=== PATIENT | female | born 1945 | race Caucasian/White ===

== ENCOUNTER 2020-01-15 17:05 | Outpatient (CLI) | payer MEDICARE, OTHER, SELFPAY ==
[2020-01-15 18:11] LABS: Anion Gap 4 mmol/L (8-16); Blood Urea Nitrogen 19 mg/dL (7-17); Calcium 9.3 mg/dL (8.4-10.2); Carbon Dioxide 35 mmol/L (22-30); Chloride 102 mmol/L (98-107); Estimated Glomerular Filt Rate > 60; Glucose 100 mg/dL (65-105); Potassium 4.3 mmol/L (3.4-5.0); Sodium 141 mmol/L (137-145)
[2020-01-15 18:19] LABS: NT Pro B Type Natriuretic Pept 89 PG/ML (5-100)
[2020-01-15 19:02] LABS: Basophils Percent Auto 0.5 % (0.2-1.2); Eosinophils Absolute Auto 0.1 K/mm3 (0-0.3); Eosinophils Percent Auto 1.8 % (0-4.4); Hemoglobin 11.9 g/dL (12.0-15.0); Immature Granulocyte Absolute 0.09 K/mm3 (0.00-0.031); Immature Granulocyte Percent A 1.1 % (0-0.5); Lymphocytes Absolute Auto 2.06 K/mm3 (0.9-3.2); Lymphocytes Percent Auto 25.8 % (18.3-44.2); Mean Corpuscular HGB Conc 31.3 g/dl (32-36); Mean Platelet Volume 10.2 fl (7.4-10.4); Monocytes Absolute Auto 0.7 K/mm3 (0.1-0.6); Monocytes Percent Auto 8.6 % (2.6-8.5); Neutrophils Percent Auto 62.2 % (45.5-73.1); Platelet Count Result 247 k/mm3 (150-375); Red Blood Count 4.58 M/mm3 (4.2-5.4); Red Cell Distribution Width 14.7 % (11.5-14.5)
== END 2020-01-15 17:06 | disposition home or self-care (01) ==
LOC: ANHLAB 17:14
PROVIDERS: PCP Family Medicine; Visit Provider Internal Medicine Cardiovascular Disease
DX: R22.43 Localized swelling, mass and lump, lower limb, bilateral (principal); I48.0 Paroxysmal atrial fibrillation; Z79.01 Long term (current) use of anticoagulants; Z95.0 Presence of cardiac pacemaker
CPT/HCPCS: 36415; 80048; 83880; 85025

== ENCOUNTER 2020-02-13 15:50 | Outpatient (CLI) | payer MEDICARE, OTHER, SELFPAY ==
[2020-02-13 16:41] LABS: Anion Gap 6 mmol/L (8-16); Blood Urea Nitrogen 16 mg/dL (7-17); Carbon Dioxide 32 mmol/L (22-30); Chloride 101 mmol/L (98-107); Estimated Glomerular Filt Rate > 60; Glucose 175 mg/dL (65-105); Potassium 4.6 mmol/L (3.4-5.0); Sodium 139 mmol/L (137-145)
== END 2020-02-13 15:51 | disposition home or self-care (01) ==
LOC: ANHLAB 15:56
PROVIDERS: PCP Family Medicine; Visit Provider Nurse Practitioner Adult Health
DX: R60.0 Localized edema (principal); Z79.899 Other long term (current) drug therapy
CPT/HCPCS: 36415; 80048

== ENCOUNTER 2022-01-26 01:20 | Day surgery (SDC) | payer MEDICARE, OTHER, SELFPAY ==
[2022-01-25 13:04] VITALS: BMI 32.3
[2022-01-26 08:47] VITALS: BP 124/50; PULSE 55; RESP 21; TEMP 37; O2SAT 93
[2022-01-26 08:56] VITALS: BMI 32.2
[2022-01-26 08:57] LABS: Basophils Percent Auto 0.5 % (0.2-1.2); Eosinophils Absolute Auto 0.2 K/mm3 (0-0.3); Eosinophils Percent Auto 2.1 % (0-4.4); Hemoglobin 11.8 g/dL (12.0-15.0); Immature Granulocyte Absolute 0.15 K/mm3 (0.00-0.031); Immature Granulocyte Percent A 1.9 % (0-0.5); Lymphocytes Absolute Auto 1.57 K/mm3 (0.9-3.2); Lymphocytes Percent Auto 20.3 % (18.3-44.2); Mean Corpuscular HGB Conc 31.9 g/dl (32-36); Mean Corpuscular Hemoglobin 25.8 pg (26-34); Mean Corpuscular Volume 80.8 fl (80-100); Mean Platelet Volume 9.5 fl (7.4-10.4); Monocytes Absolute Auto 0.5 K/mm3 (0.1-0.6); Monocytes Percent Auto 6.6 % (2.6-8.5); Neutrophils Absolute Auto 5.3 K/mm3 (1.3-6.7); Neutrophils Percent Auto 68.6 % (45.5-73.1); Platelet Count Result 303 k/mm3 (150-375); Red Blood Count 4.58 M/mm3 (4.2-5.4); Red Cell Distribution Width 14.3 % (11.5-14.5); White Blood Count 7.7 K/mm3 (4.5-10.0)
[2022-01-26 09:13] LABS: Anion Gap 6 mmol/L (8-16); Blood Urea Nitrogen 20 mg/dL (7-17); Calcium 9.3 mg/dL (8.4-10.2); Carbon Dioxide 29 mmol/L (22-30); Chloride 102 mmol/L (98-107); Estimated CRCL calculation 51 ml/min; Estimated Glomerular Filt Rate 54; Glucose 249 mg/dL (65-110); Potassium 4.1 mmol/L (3.4-5.0); Sodium 137 mmol/L (137-145)
[2022-01-26 09:18] LABS: INR 0.9; Prothrombin Time 11.9 Seconds (11.1-14.7)
--- NOTE | 2022-01-26 10:06 | PM.IMHP ---
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 History of paroxysmal AFib on Eliquis which has been held for 2 days. TIA in 2018, diabetes, tobacco use, COPD, hypertension, hyperlipidemia and diabetes. Patient's pacemaker reached elective replacement interval recently and she is here for generator change. She is feeling well although little more wheezy than usual and has used for proper this morning. Review of Systems Constitutional: Constitutional: Denies fever(s) Cardiovascular: Cardiovascular: Denies chest pain, Denies pedal edema, Denies lightheadedness and Denies dyspnea Respiratory: Respiratory: Denies chest congestion, Denies dyspnea and Reports wheezing Gastrointestinal: Gastrointestinal: Denies abdominal pain and Denies hematochezia Musculoskeletal: Musculoskeletal: Reports no additional musculoskeletal complaints Integumentary/Breasts: Skin/Breast: Reports system reviewed and no additional complaints, except as docu Neurologic: Reports system reviewed and no additional complaints, except as documented, Denies behavioral changes and Denies confusion Psychiatric: Psychiatric: Denies behavioral changes and Denies confusion PMFSH Family History Family History Mother Family history of premature coronary heart disease Cerebrovascular accident Family history of pancreatic cancer Father Hypertension Family history of elevated blood lipids Cerebrovascular accident Carcinoma of colon Malignant neoplasm of prostate Sibling Family history of malignant neoplasm of breast Other Diabetes mellitus Family history of hypercholesterolemia Family history of malignant neoplasm Social History Social History Years smoked: 50 Smoking status: Current every day smoker Tobacco type: cigarettes Alcohol intake: never Substance use type: does not use Living arrangements: with family Spiritual care concerns: No Meds Home Medications and Allergies Home Medications Medication Instructions Recorded Confirmed Type apixaban 5 mg tablet (Eliquis) 5 mg PO BID 02/08/19 01/25/22 History fenofibrate 160 mg tablet 160 mg PO DAILY #90 tabs 04/29/19 01/25/22 Rx rosuvastatin 20 mg tablet 20 mg PO DAILY #90 tabs 07/03/19 01/25/22 Rx aspirin 81 mg tablet,delayed 81 mg PO DAILY 11/01/19 01/25/22 History release calcium carbonate 500 mg-vitamin 1 tablet PO DAILY 11/01/19 01/25/22 History D3 5 mcg (200 unit) tablet (Os-Tato 500 + D3) cholecalciferol (vitamin D3) 125 125 mcg PO DAILY 11/01/19 01/25/22 History mcg (5,000 unit) capsule insulin aspart U-100 100 unit/mL 1 sliding scale dose subcut 11/01/19 01/25/22 History subcutaneous solution (Novolog USEASDIRECTD U-100 Insulin aspart) omega-3 fatty acids 1,000 mg 2,000 mg PO BID #180 caps 12/25/19 01/25/22 Rx capsule alendronate 70 mg tablet 70 mg PO WEEKLY #13 tabs 03/09/20 01/25/22 Rx albuterol sulfate 1.25 mg/3 mL 1.25 mg (3 mL) inhalation Q4-6H 05/06/20 01/25/22 Rx solution for nebulization PRN shortness of breath or wheezing #180 mL fluoxetine 20 mg capsule (Prozac) 20 mg PO BID #180 caps 05/25/20 01/25/22 Rx olmesartan 40 mg tablet 40 mg PO DAILY #90 tabs 05/25/20 01/25/22 Rx trazodone 100 mg tablet 100 mg PO .qhs #90 tabs 05/25/20 01/25/22 Rx famotidine 20 mg tablet 20 mg PO DAILY 01/25/22 01/25/22 History fluticasone fur. 100 mcg-umeclid 1 inh inhalation DAILY 01/25/22 01/26/22 History 62.5 mcg-vilant 25 mcg inhalat.powder (Trelegy Ellipta) fluticasone propionate 50 2 spray intranasal DAILY PRN 01/25/22 01/25/22 History mcg/actuation nasal Allergy Symptoms spray,suspension furosemide
--- NOTE | 2022-01-26 10:10 | WPDMODSED ---
Moderate Sedation Note-Pt Data Patient Data Diagnosis: Pacemaker at elective replacement interval. Present Complaint: Patient with a [employer] [facility] dual-chamber pacemaker placed December 2012 for symptomatic bradycardia. This has reached MICHAEL and she is here for a generator change under conscious sedation. Procedure to be performed/Plan: Conscious sedation Pulse generator change Allergies Allergy/AdvReac Type Severity Reaction Status Date / Time shellfish derived Allergy Severe HIVES, Verified 01/26/22 08:43 SWELLING Penicillins Allergy Unknown Skin Verified 01/26/22 08:43 Reaction Home Medications Medication Instructions Recorded Confirmed Type apixaban 5 mg tablet (Eliquis) 5 mg PO BID 02/08/19 01/25/22 History fenofibrate 160 mg tablet 160 mg PO DAILY #90 tabs 04/29/19 01/25/22 Rx rosuvastatin 20 mg tablet 20 mg PO DAILY #90 tabs 07/03/19 01/25/22 Rx aspirin 81 mg tablet,delayed 81 mg PO DAILY 11/01/19 01/25/22 History release calcium carbonate 500 mg-vitamin 1 tablet PO DAILY 11/01/19 01/25/22 History D3 5 mcg (200 unit) tablet (Os-Tato 500 + D3) cholecalciferol (vitamin D3) 125 125 mcg PO DAILY 11/01/19 01/25/22 History mcg (5,000 unit) capsule insulin aspart U-100 100 unit/mL 1 sliding scale dose subcut 11/01/19 01/25/22 History subcutaneous solution (Novolog USEASDIRECTD U-100 Insulin aspart) omega-3 fatty acids 1,000 mg 2,000 mg PO BID #180 caps 12/25/19 01/25/22 Rx capsule alendronate 70 mg tablet 70 mg PO WEEKLY #13 tabs 03/09/20 01/25/22 Rx albuterol sulfate 1.25 mg/3 mL 1.25 mg (3 mL) inhalation Q4-6H 05/06/20 01/25/22 Rx solution for nebulization PRN shortness of breath or wheezing #180 mL fluoxetine 20 mg capsule (Prozac) 20 mg PO BID #180 caps 05/25/20 01/25/22 Rx olmesartan 40 mg tablet 40 mg PO DAILY #90 tabs 05/25/20 01/25/22 Rx trazodone 100 mg tablet 100 mg PO .qhs #90 tabs 05/25/20 01/25/22 Rx famotidine 20 mg tablet 20 mg PO DAILY 01/25/22 01/25/22 History fluticasone fur. 100 mcg-umeclid 1 inh inhalation DAILY 01/25/22 01/26/22 History 62.5 mcg-vilant 25 mcg inhalat.powder (Trelegy Ellipta) fluticasone propionate 50 2 spray intranasal DAILY PRN 01/25/22 01/25/22 History mcg/actuation nasal Allergy Symptoms spray,suspension furosemide 20 mg tablet 40 mg PO DAILY 01/25/22 01/25/22 History gabapentin 300 mg tablet 300 mg PO BID 01/25/22 01/26/22 History insulin glargine 100 unit/mL 50 unit subcut QPM 01/25/22 01/25/22 History subcutaneous cartridge ytxuvzvepsze-ijqyhsor-emvwvn tablet 1 tablet PO DAILY 01/25/22 01/25/22 History potassium 99 mg tablet 99 mg PO DAILY 01/26/22 01/26/22 History Sedation/Anesthesia: No previous sedation/anesthesia problems (including family history). [facility] Family History Family History Mother Family history of premature coronary heart disease Cerebrovascular accident Family history of pancreatic cancer Father Hypertension Family history of elevated blood lipids Cerebrovascular accident Carcinoma of colon Malignant neoplasm of prostate Sibling Family history of malignant neoplasm of breast Other Diabetes mellitus Family history of hypercholesterolemia Family history of malignant neoplasm Social History Social History Years smoked: 50 Smoking status: Current every day smoker Tobacco type: cigarettes Alcohol intake: never Substance use type: does not use Living arrangements: with family Spiritual care concerns: No Mod Sed Physical Exam Physical Exam Pre Procedural Exam: Normal: Appearance, Eyes, Ears, Nose, Neck, Throat, Airway, Heart Size, Heart Rate, Heart Rhythm, Neuro Exam, Abdomen, Extremities and Skin (Pacemaker Incision is well healed) and Variation: Lungs (Few scattered wheezes) Hours since solid foods: 12 Hours since liquid intake: 12
--- NOTE | 2022-01-26 10:27 | SUR.PREOP ---
Dr. Rios at bedside at 0955 discussing procedure with patient and her step-daughter Nelly. Dr. Rios informed of patient's labs including elevated glucose of 249 and allergies including shellfish and penicillin. Vancomycin to be used for procedure. Patient's chest was wiped with 2% chlorhexadine prior to transporting to labor specialist. Dr. Rios aware of patient's cough and wheezing and diagnosis of COPD. No new orders for those symptoms. Plan to treat patient's glucose with insulin post procedure.
--- NOTE | 2022-01-26 11:19 | PM.OP ---
Procedure Note - Brief Procedure Note - Brief Date of procedure: 01/26/22 Pre-op diagnosis: frances Post-op diagnosis: Other ( status post generator change) Procedure performed: Conscious sedation Pulse generator change Description of procedure: uneventful generator change Surgeon: Shona Rios MD Complications: No immediate complications Disposition: Observation
--- NOTE | 2022-01-26 11:21 | P.OP_ITS ---
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 Parrish.? Atrially paces 80% and is pacemaker dependent. History of paroxysmal AFib on Eliquis which has been held for 2 days.? TIA in 2018, diab etes, tobacco use, COPD, hypertension, hyperlipidemia and diabetes.? Patient's pacemaker reached elective replacement interval recently and she is here for generator change.? She is feeling well although little more wheezy than usual and has used for proper this morning. Description of Procedure UNDERLYING RHYTHM: underline junctional rhythm CONSCIOUS SEDATION: Assessment: The patient has no history of anesthesia problems. The oropharynx is clear. The patient was deemed to be a good candidate for conscious sedation. The patient had continuous hemodynamic and oximetric monitoring during the procedure. Start time: 10:39 a.m. Completion time: 11:12 a.m. Total conscious sedation time: 33 minutes Medications: Versed 1 mg, fentanyl 50 mcg IV push Trained observer: Feliz Block RN Outcome: The patient tolerated the procedure well with no complications. PROCEDURE: After informed consent, the patient is brought to the general laborer and the left prepectoral area was prepped and draped in usual fashion. The patient was given a prophylactic antibiotic intravenously with vancomycin. After conscious sedation as described above, the area was anesthetized with 1% lidocaine. A skin incision was made with the Plasma Blade and carried down to the pacing capsule which was also incised. There was a thick calcified capsule surrounding the device which was partially excised. Hemostasis was obtained using the Plasma Blade. The lead/s was/were freed from the underlying capsule and inspected and were found to be intact. The pulse generator was delivered from the pocket. The lead/s was/were disconnected from the existing device and reconnected to the new device. A gentle tug could not remove it/them. The device and lead/s was/were interrogated and found to be functioning appropriately. The area was copiously irrigated with antibiotic-containing solution. The device was replaced in the pocket. The subcutaneous tissues were closed in a two-layer fashion with interrupted 2 0 Vicryl sutures and the skin was closed in a continuous fashion using 4 0 Vicryl. The area was cleansed, an Aquacel dressing applied. The patient tolerated the procedure well with no complications. Estimated blood loss was negligible. THRESHOLD INFORMATION: Atrial lead: P-wave sensing 2.1 mV, threshold 0.75 volts at 0.4 milliseconds, impedance 340 Ohms Ventricular lead: R-wave sensing greater than 12 mV, threshold 0.875 volts at 0.2 milliseconds, impedance 510 Ohms PROGRAMMED PARAMETERS: DDDR 60-100 Implants DEVICE INFORMATION: New pulse generator: 50 Cubes model 2272, serial [id number] Existing right atrial lead: [employer] model 1998/46 cm, serial [id number], implanted 12/14/2012 Existing ventricular lead: [employer] model 2088 TC/52 cm, serial [id number], implanted 12/14/2012 Explanted device: [employer] model 2210, serial [id number], implanted 12/14/2012
[2022-01-26 11:30] VITALS: BP 118/63; PULSE 60; RESP 20; TEMP 36.6; O2SAT 93
[2022-01-26 11:39] LABS: Glucose Point of Care 196 mg/dl (65-105)
[2022-01-26 11:45] VITALS: BP 142/66; PULSE 63; RESP 20; O2SAT 91
--- NOTE | 2022-01-26 11:54 | ECG_ITS ---
Measurements Intervals [place] Rate: 60 P: -46 FL: 277 QRS: 227 QRSD: 118 T: 48 QT: 428 QTc: 428 Interpretive Statements ELECTRONIC ATRIAL PACEMAKER RIGHT AXIS DEVIATION INTRAVENTRICULAR CONDUCTION DELAY BORDERLINE ST-T WAVE ABNORMALITY- ANTERIOR LEADS BORDERLINE ECG NO PREVIOUS ECG AVAILABLE FOR COMPARISON Electronically Signed On 01-26-2022 12:03:59 [employer]APHIC [employer] SALES REPRESENTATIVE by Praneeth Lara D.O.
[2022-01-26 12:00] VITALS: BP 131/61; PULSE 63; RESP 19; O2SAT 90
== END 2022-01-26 12:30 | disposition home or self-care (01) ==
PROVIDERS: Visit Provider Internal Medicine Cardiovascular Disease
PROC: 0JPT0PZ Removal of Cardiac Rhythm Related Device from Trunk Subcutaneous Tissue and Fascia, Open Approach (ICD-10-PCS; CPT 33228; principal; 2022-01-26 10:00)
DX: Z45.010 Encounter for checking and testing of cardiac pacemaker pulse generator [battery] (principal); R00.1 Bradycardia, unspecified; I48.0 Paroxysmal atrial fibrillation; I10 Essential (primary) hypertension; E78.5 Hyperlipidemia, unspecified; J43.9 Emphysema, unspecified; E11.65 Type 2 diabetes mellitus with hyperglycemia; F17.210 Nicotine dependence, cigarettes, uncomplicated; Z86.73 Personal history of transient ischemic attack (TIA), and cerebral infarction without residual deficits; Z79.01 Long term (current) use of anticoagulants; Z79.82 Long term (current) use of aspirin; Z79.4 Long term (current) use of insulin; Z79.51 Long term (current) use of inhaled steroids
CPT/HCPCS: 33228; 36415; 80048; 82948; 85025; 85610; 93005; C1785; J2250; J3010; J3370; J7040

== ENCOUNTER 2022-02-09 10:18 | Outpatient (CLI) | payer MEDICARE, OTHER, SELFPAY ==
--- NOTE | ~2022-02-09 | US_ITS ---
EXAMINATION: US carotid duplex BI DATE: 02/09/2022 11:15 INDICATION: Cerebrovascular accident TECHNIQUE: Grayscale, color Doppler, and pulsed Doppler images of the cervical carotid arteries were obtained. The degree of vessel stenosis is placed in one of the following categories: normal, <50%, 5 0-69%, >=70% but less than near-occlusion, near-occlusion, or total occlusion. Note that percent sten osis relative to normal distal artery lumen diameter is indirectly measured from velocity measurement s as described by Matt, et al. Radiology 2003; 229:[id number]. COMPARISON: None. FINDINGS: RIGHT: The right common carotid artery (CCA) peak systolic velocity (PSV) is 87 cm/s. The right internal car otid artery (ICA) PSV is 61 cm/s. The right ICA end-diastolic velocity (EDV) is 20 cm/s. The right IC A/CCA PSV ratio is 0.7. Grayscale and color Doppler images yield an estimate of <50% diameter reducti on from minimal plaque in the ICA. The external carotid artery (ECA) PSV is 68 cm/s. There is antegra de flow in the right vertebral artery. LEFT: The left CCA PSV is 81 cm/s. The left ICA PSV is 51 cm/s. The left ICA EDV is 13 cm/s. The left ICA/C CA PSV ratio is 0.6. Grayscale and color Doppler images yield an estimate of <50% diameter reduction from small amount of plaque in the ICA. The ECA PSV is 78 cm/s. There is antegrade flow in the left v ertebral artery. IMPRESSION: 1. <50% stenosis in the right internal carotid artery. 2. <50% stenosis in the left internal carotid artery. Reviewed, dictated and finalized at location [facility]
== END 2022-02-09 10:19 | disposition home or self-care (01) ==
LOC: ANHIMG 10:23
PROVIDERS: Visit Provider Nurse Practitioner Adult Health
DX: I63.9 Cerebral infarction, unspecified (principal); R47.89 Other speech disturbances; I65.23 Occlusion and stenosis of bilateral carotid arteries
CPT/HCPCS: 93880